=== PATIENT | female | born 1985 | race Caucasian/White ===

== ENCOUNTER 2024-09-23 18:18 | Emergency (ER) | payer MEDICAID ==
[~2024-09-23] VITALS: Ht 170.2 cm; Wt 68.5 kg
[2024-09-23 18:49] VITALS: O2SAT 97
== END 2024-09-23 21:30 | disposition left against medical advice (07) ==
LOC: ER 18:18
DX: R60.9 Edema, unspecified (principal); Z53.21 Procedure and treatment not carried out due to patient leaving prior to being seen by health care provider
CPT/HCPCS: A4606; A4663